=== PATIENT | male | born 1990 | race Caucasian/White ===

== ENCOUNTER 2016-08-28 20:22 | Emergency (ER) | payer BC, OTHER ==
[~2016-08-28] VITALS: Ht 180.3 cm; Wt 84.1 kg
[2016-08-28 20:24] VITALS: TEMP 36.8; Ht 180.3 cm; Wt 84.1 kg
--- NOTE | 2016-08-28 20:57 | DIAGNOSTIC IMAGING REPORT ---
LEFT KNEE 3 VIEWS HISTORY: left knee pain COMPARISON: None. FINDINGS: There is no fracture or dislocation. Soft tissues are unremarkable. No radiopaque foreign bodies. No knee effusion. IMPRESSION: No fractures. Electronically signed by: Lenny Levin M.D. 08/28/2016 8:56 PM Dictated Date/Time: 08/28/2016 8:55 PM
[2016-08-28] MEDS ORDERED: HYDROCODONE/ACETAMOPHEN 5/325MG TAB PO STA (21:02)
[2016-08-28] MEDS ORDERED: NORCO 5/325MG HOME PACK PO ONE (22:00)
[2016-08-28] MEDS ORDERED: HYDR-5688 PO (22:04)
--- NOTE | 2016-08-28 22:05 | EMERGENCY ROOM VISIT NOTE ---
ED Visit Note First contact with patient: 20:27 CHIEF COMPLAINT: knee pain HISTORY OF PRESENT ILLNESS: This 25-year-old male patient presents to the emergency department ambulatory complaining of pain in the left knee. The patient states that his initial injury occurred 3 years ago. He states he was diagnosed with hairline fractures of his kneecap and a partially torn meniscus. He has been seen by [facility] and states that he did not require surgery. The patient states that tonight, he was at work and bent over, and felt a snap at the tip of his knee. He has had pain and difficulty walking since then. He states the pain is primarily on the inside of the knee. The patient denies swelling or bruising. They rate the pain as sharp and 8/10. No numbness or tingling. No previous injuries to this knee. No ankle, foot or hip pain. REVIEW OF SYSTEMS: A 6 system review of systems was completed with positives and pertinent negatives listed in the HPI. ALLERGIES: Latex MEDICATIONS: No chronic medications PMH: No significant past medical history. SOCIAL HISTORY: The patient lives locally with family. Nonsmoker, admits to occasional alcohol use. PHYSICAL EXAM: Vital Signs: Reviewed Nurse's notes, vital signs stable. GENERAL : This is a 25-year-old male, no acute distress, but appears in pain, well- developed, well-nourished. MENTAL STATUS: Alert, oriented to person place and time, and cooperative. MUSCULOSKELETAL: The left knee is not swollen. There is no ecchymosis. There is no joint effusion present. The patient is diffusely tender. There is no joint line tenderness. The patella does not subluxate. Range of motion is full. Strength of the quads and hamstrings is 5/5. Ligamentous exam is limited due to patient discomfort. No laxity with valgus or varus stressing. The foot and toes are warm and well-perfused. Dorsalis pedis pulse 2+. Sensation to pain and light touch is intact. Capillary refill less than 2 seconds. RADIOGRAPHIC FINDINGS: LEFT KNEE 3 VIEWS HISTORY: left knee pain COMPARISON: None. FINDINGS: There is no fracture or dislocation. Soft tissues are unremarkable. No radiopaque foreign bodies. No knee effusion. IMPRESSION: No fractures. EMERGENCY DEPARTMENT COURSE: I examined the patient. He was given 1 tablet [place] for pain. X-rays of the left knee were reviewed by myself and read by radiology and reveal no acute findings. The patient was placed in a knee immobilizer under my direction and the position was satisfactory. The patient was instructed on the use of crutches. The patient will follow-up with [facility]. He was given one day off work. He was given a home pack and prescription of [place]. The [place] prescription drug monitoring program was cleared and no reflux were identified. The patient verbalized understanding of my assessment and treatment plan. The patient was discharged home in good condition. DIAGNOSIS: Left knee pain Problem List Medical Problems: (1) Ankle surgery Status: Resolved (2) Asthma Status: Chronic (3) HTN (hypertension) Status: Chronic (4) Skin problems Status: Chronic Current/Historical Medications Scheduled PRN Hydrocodone/Acetaminophen 5MG/325MG ([place] 5MG/325MG), 1-2 TABLET PO Q4H PRN for Pain Allergies Coded Allergies: Latex (Verified Allergy, Intermediate, rash, 08/22/13) Vital Signs Date Time Temp Pulse Resp B/P Pulse Ox O2 Delivery O2 Flow Rate FiO2 08/28/16 22:27 82 146/82 97 Room Air 08/28/16 20:24 36.8 103 18 155/113 97 Room Air Medications Administered Medications (Trade) Dose Ordered Sig/Slim Route Start Time Stop Time Status Last Admin Dose Admin Acetaminophen/ Hydrocodone Bitart ([place] 5/325 Tab) 1 tab NOW STAT PO 08/28/16 21:02 08/28/16 21:03 DC 08/28/16 21:46 1 TAB Acetaminophen/ Hydrocodone Bitart ([place] 5/325mg Home Pack) 1 homepack UD ONCE PO 08/28/16 22:00 08/28/16 22:01 DC 08/28/16 22:25 1 HOMEPACK Departure Information Impression Primary Impression: Left knee pain Dispostion Home / Self-Care Condition GOOD Prescriptions Hydrocodone/Acetaminophen 5MG/325MG ([place] 5MG/325MG) Tab 1-2 TABLET PO Q4H Y for Pain, #15 TAB For Initial Treatment Prov: Yue Vickers PA-C 08/28/16 Referrals No Doctor, Assigned (PCP) Tomas Jackson M.D. Patient Instructions My [facility] Additional Instructions You have been treated in the Emergency Department for Knee Pain. You have received pain medicine in the emergency department which impairs your ability to operate a vehicle. It is illegal for you to drive after receiving these medicines. You have been prescribed [place] to be used for pain control. This is a narcotic medication. You cannot drive or consume alcohol while on this medicine. This medicine should only be used for pain that cannot be controlled with over-the- counter pain medicines. For pain control, you can use the following [id number] medicines (if >12 yo): - Regular strength (325mg/tab) Tylenol (acetaminophen) 2 tabs every 4-6 hours as needed. Do not exceed 12 tablets in a 24 hour period. Avoid taking more than 4 grams (4000 mg) of Tylenol per day. This includes any other sources of acetaminophen you may take on a regular basis. - Regular strength (200 mg/tab) Advil (ibuprofen) 1-2 tabs every 4-6 hours as needed. Do not exceed a dose of 3200 mg per day. If this is a recent injury (<24 hrs), ice can be applied to the area of pain for the first 3 days to help decrease pain and inflammation. Ice massages can be performed by freezing water in a paper cup, peeling back the cup to expose the ice and then massaging over the affected area. You have been provided the number for an Orthopaedic Surgeon. You should call this number as soon as possible to establish a follow-up visit from today's Emergency Department visit. Keep the knee brace in place until cleared by Orthopedics. Use the crutches you have been provided to keep ALL weight off of the knee until weight bearing is tolerable. Return to the Emergency Department if your current symptoms worsen despite treatment course outlined above. Problem Qualifiers Primary Impression: Left knee pain Chronicity: acute Qualified Codes: M25.562 - Pain in left knee
[2016-08-28 22:27] VITALS: BP 146/82; PULSE 82; O2SAT 97
== END 2016-08-28 22:32 | disposition home or self-care (01) ==
LOC: C.EDB 20:23 → C.EDD 22:32
DX: M25.562 Pain in left knee (principal); I10 Essential (primary) hypertension; J45.909 Unspecified asthma, uncomplicated; Z98.890 Other specified postprocedural states; Z91.040 Latex allergy status